=== PATIENT | male | born 1965 | race Caucasian/White ===

== ENCOUNTER 2022-04-29 10:30 | Emergency (ER) | payer SELFPAY ==
[2022-04-29 10:43] VITALS: BP 145/88; PULSE 88; RESP 18; TEMP 98.5; BMI 38.3
[2022-04-29] MEDS ORDERED: KETOROLAC TROMETHAMINE 30 MG/1 ML VIAL IM ONE (10:48)
[2022-04-29] MEDS ORDERED: LIDOCAINE 5% TOPICAL PATCH TP ONE (10:48)
[2022-04-29] MEDS ORDERED: KETOROLAC TROMETHAMINE 30 MG/1 ML VIAL ONE (10:54)
[2022-04-29] MEDS ORDERED: LIDOCAINE 5% TOPICAL PATCH ONE (10:54)
[2022-04-29] MEDS ORDERED: LIDOCAINE PATCH REMOVAL MC SCH (22:00)
== END 2022-04-29 12:08 | disposition home or self-care (01) ==
LOC: FER 10:30
PROC: 3E023GC Introduction of Other Therapeutic Substance into Muscle, Percutaneous Approach (ICD-10-PCS; principal; 2022-04-29)
DX: J18.9 Pneumonia, unspecified organism (principal)
CPT/HCPCS: 71046-TC-FY; 99284-25; C9803-CS; U0003; U0005